=== PATIENT | female | born 1945 | race Caucasian/White ===

== ENCOUNTER 2019-09-15 13:22 | Inpatient (IN) ==
--- NOTE | 2019-09-15 13:52 | EKG Report ---
Test Performed on : 09/15/2019 1:40:41 PM Test Reason : weakness Blood Pressure : / mmHG Vent. Rate : 146 BPM Atrial Rate : 121 BPM P-R Int : 144 ms QRS Dur : 122 ms QT Int : 384 ms P-R-T Axes : 077 173 054 degrees QTc Int : 598 ms Undetermined rhythm Right bundle branch block Lateral infarct , age undetermined Inferior infarct (cited on or before 28-JUN-2018) Abnormal ECG When compared with ECG of 28-JUN-2018 17:43, Current undetermined rhythm precludes rhythm comparison, needs review QRS axis shifted right Lateral infarct is now present Unconfirmed Result
--- NOTE | 2019-09-15 13:58 | Diag Imaging Result Doc PS360 ---
CHEST-1 VIEW - 09/15/2019 INDICATION: ams COMPARISON: None FINDINGS: There is some scant linear atelectasis in the lateral left lung base. The lungs are clear. Heart size is normal. No pneumothorax or pleural effusion. IMPRESSION: Trace linear atelectasis in the lateral left lung base. Electronically signed by Wilton Krishna 09/15/2019 1:55 PM
[2019-09-15 14:21] LABS: BASO# 0.04 X1000 (0.0-0.2); BASO% 0.3 % (0.0-0.8); EOS# 0.01 X1000 (0.0-0.7); EOS% 0.1 % (0.0-10.0); HEMATOCRIT 47.6 % (37.0-47.0); HEMOGLOBIN 15.8 g/dL (12.0-16.0); IMM GRAN# 0.02 X1000 (0.0-0.04); IMM GRAN% 0.2 % (0.0-0.5); LYMPH# 0.78 X1000 (1.2-3.4); LYMPH% 6.1 % (20.5-51.1); MCHC 33.2 g/dL (33-37); MCV 90.3 FL (81-99); MONO# 0.24 X1000 (0.11-0.59); MONO% 1.9 % (1.7-9.3); MPV 10.9 FL (7.4-10.4); NEUT# 11.65 X1000 (1.4-6.5); NEUT% 91.4 % (42.2-75.2); PLT 362 X1000 (130-400); RBC 5.27 XMIL (4.2-5.4); RDW 13.8 % (11.5-14.5); WBC 12.74 X1000 (4.8-10.8)
[2019-09-15] MEDS ORDERED: NS 1,000 ML IV ONE ×2 (14:25→16:22)
--- NOTE | 2019-09-15 14:29 | PROVIDER DOCUMENTATION ---
HPI-General Adult - General Chief Complaint: Weakness Stated Complaint: VOMITING WEAKNESS LOSS APPETITE Time Seen by Provider: 09/15/19 14:09 Source: family Allergies/Adverse Reactions: Patient Allergies Allergy/AdvReac Type Severity Reaction Status Date / Time No Known Allergies Allergy Verified 06/28/18 14:19 Home Medications: Home Medication List Medication Instructions Recorded Confirmed Last Taken Type Citalopram [Celexa] 20 mg PO DAILY 06/28/18 09/07/19 06/27/18 History Memantine [Namenda] 10 mg PO BID 06/28/18 09/07/19 06/28/18 History Potassium Chloride 1 tab PO DAILY 09/07/19 09/07/19 Unknown History - History of Present Illness -Gen Adult Nature of Presenting Problems: 74 yr old F, presenting with her caregiver (her daughter) with concerns of increasing weakness, decreased appetite, and vomiting over the past few days. The daughter noticed that the patient had not been eating as much as she normally does, and also had an episode of vomiting last night and this morning. She also noted that the pt had been going to bed much earlier than she normally does over the past few days. The pt has recently been found to have tumors on the spine and lungs, and is due to start radiation this week. The daughter denies that the pt has had any fever; she thinks she may have been urinating less. Review of Systems - Adult - REVIEW OF SYSTEMS - ADULT ROS:: ROS per family Constitutional: reports: see HPI Eyes: reports: no symptoms reported Ears, Nose, Mouth & Throat: reports: no symptoms reported Cardiovascular: reports: no symptoms reported Respiratory: reports: no symptoms reported Gastrointestinal: reports: see HPI Genitourinary: reports: see HPI Musculoskeletal: reports: see HPI Integumentary: reports: no symptoms reported Neurological: reports: other (pt has some speech impediment; doesn't communicate clearly; this has been ongoing for a few months) Psychiatric: reports: no symptoms reported Past History - Adult - PAST MEDICAL HISTORY-ADULT Review of Records: reports: Old Records Reviewed, Nursing Assessment Review Major Childhood Illnesses: reports: denies history Cardiovascular: reports: denies history Respiratory: reports: denies history Gastrointestinal: reports: denies history Obstetrical/Gynecological: reports: denies history Genitourinary: reports: denies history Musculoskeletal: reports: denies history Neurological: reports: cancer/tumor (squamous w/ spinal tumor), CVA (mini- stroke), dementia (frontal lobe), TIA Psychiatric: reports: other (advanced alzheimers) Endocrine/Immune: reports: denies history Other Conditions: reports: denies history - PRIOR SURGERIES/PROCEDURES Surgical/Procedure History: reports: reviewed, not pertinent - IMMUNIZATION STATUS Childhood Immunizations: See Nurse Assessment Flu Vaccine: See Nurse Assessment - FAMILY HISTORY Family History: reviewed, not pertinent Physical Exam-General - PHYSICAL EXAM-ADULT Initial Vital Signs Reviewed: Yes - CONSTITUTIONAL General Appearance: alert, no apparent distress, thin - EYES Eyes: PERRL/EOMI - HEAD, EARS, NOSE, MOUTH & THROAT HENMT: normocephalic/atraumatic, moist mucous membranes - RESPIRATORY Respiratory: chest non-tender, lungs clear, normal breath sounds - CARDIOVASCULAR Cardiovascular: tachycardia - GASTROINTESTINAL (ABDOMEN) Abdominal Exam: normal bowel sounds, non tender, soft - MUSCULOSKELETAL Extremity: no pedal edema, other (pt does grab at her left leg, which apparently has been chronically hurting; the daughter states that typically means she is in pain .) - SKIN Integumentary: warm/dry - NEUROLOGIC Neurologic: negative: facial droop, focal weakness Progress - PLAN OF CARE/RESULTS Progress/Plan/Lab Results: Vital Signs - 8 hr 09/15/19 13:26 Temperature 99.0 F Pulse Rate 115 H Respiratory Rate 19 Blood Pressure 212/118 O2 Sat by Pulse Oximetry 98 Laboratory Results - last 24 hr 09/15/19 14:10 WBC 12.74 H RBC 5.27 Hgb 15.8 Hct 47.6 H MCV 90.3 MCH 30.0 MCHC 33.2 RDW Std Deviation 13.8 Plt Count 362 MPV 10.9 H Immature Gran % (Auto) 0.2 Neut % (Auto) 91.4 H Lymph % (Auto) 6.1 L [place] % (Auto) 1.9 Eos % (Auto) 0.1 Baso % (Auto) 0.3 Immature Gran # (Auto) 0.02 Neut # (Auto) 11.65 H Lymph # (Auto) 0.78 L [place] # (Auto) 0.24 Eos # (Auto) 0.01 Baso # (Auto) 0.04 Orders Category Date Time Status Cardiac Monitoring DIRECTED Care 09/15/19 13:34 Active Finger Stick Blood Sugar (ED) DIRECTED Care 09/15/19 13:34 Active Oxygen Therapy- ED Nursing DIRECTED Care 09/15/19 13:34 Active Saline Loc NOW Care 09/15/19 13:34 Active CHEST-1 VIEW [RAD] Stat Exams 09/15/19 13:35 Completed ALCOHOL BLOOD Stat Lab 09/15/19 14:10 Received CBC WITH ELECTRONIC DIFF [HEME] Stat Lab 09/15/19 14:10 Completed CK PROFILE [SP CHEM] Stat Lab 09/15/19 14:10 Received COMPREHENSIVE METABOLIC PANEL [CHEM] Stat Lab 09/15/19 14:10 Received LACTATE, PLASMA [CHEM] Stat Lab 09/15/19 14:10 Received PROTIME WITH INR [COAG] Stat Lab 09/15/19 14:10 Received PTT [COAG] Stat Lab 09/15/19 14:10 Received TROPONIN T HIGH SENSITIVITY Stat Lab 09/15/19 14:10 Received URINALYSIS [URINALYSIS] Stat Lab 09/15/19 13:34 Uncollected Ns 1000 ml IV Bolus X1 Med 09/15/19 14:25 Ordered 0.9% Sodium Chloride Inj [Ns] 1,000 ml IV 999 mls/hr Altered Mental Status Stat Oth 09/15/19 13:34 Ordered EKG [EKG] Stat Ther 09/15/19 13:34 Draft Pt with mild WBC elevation, mild signs of dehydration; most concerning is the fact that she had over a 1L of urine - possible retention, though CT Abd is negative for acute bladder pathology; this may be stemming from the spinal lesion; pt to be admitted after case discussed with hospitalist. Result Diagrams: 09/15/19 14:10 09/15/19 14:10 - EKG 1 Time of EKG reading by physician:: 13:40 EKG Read and Signed by:: Lai Porter EKG Interpretation (*Must complete 3 of following elements*): Abnormal Rate: 146 Rhythm: undetermined rhythm QRS: RBB [place] Interval: normal ST Wave: non-specific ST changes Comments: lateral, inferior infarct 2 Time of EKG reading by physician:: 17:14 EKG Read and Signed by:: Rhett Mina EKG Interpretation (*Must complete 3 of following elements*): Abnormal Rate: 111 Rhythm: sinus tachycardia with occasional PVCs and fusion complexes [place]: normal QRS: RBB [place] Interval: normal ST Wave: non-specific ST changes - XRAY 1 XRAY Study: Chest Impression: See EMR Report XRAY Interpretation: trace atelectasis - CT/MRI 1 CT Study: Abdomen, Pelvis Impression: See EMR Report CT Results: no acute findings; no bladder pathology; spinal lesion noted; - CONSULTS/PCP/HOSPITALIST Notification #1 *Consult/PCP/Hospitalist*: hCerie (for Dr. Anderson) Time Discussed: 17:45 Consult Disposition: Admit Departure - Departure Date of Disposition Decision: 09/15/19 Time of Disposition Decision: 19:00 DIAGNOSIS: Weakness, Hypertensive urgency Disposition: ADMITTED INPATIENT 09 Certified Medical Emergency: Emergent Condition: Fair - Critical Care Note This patient required my direct & personal management of CC.: No Attestation - Physician/ KANDY Attestation Patient care was provided by Advanced Practice Provider:: No The physician spent face to face time with patient:: Yes Advanced Practice Provider documentation review:: Supervising physician onsite and consulted in the evaluation and care of this patient. The physician did have a face to face encounter with the patient.
[2019-09-15 14:30] LABS: INR 0.98; PROTIME 13.1 Seconds (11.0-16.0); PTT 30.4 Seconds (22.3-41.8)
[2019-09-15 14:51] LABS: AGAP 15; ALB/GLOB RATIO 1.4; ALBUMIN 4.4 g/dL (3.5-5.0); ALKALINE PHOSPHATASE 91 U/L (32-104); BUN 11 mg/dL (8-22); CALCIUM 10.8 mg/dL (8.8-10.2); CHLORIDE 95 mmol/L (98-107); CK PROFILE 40 U/L (24-173); COSMO 268; CREATININE 0.7 mg/dL (0.5-0.9); ESTIMATED GFR > 60; GLUCOSE 175 mg/dL (70-104); GOT 14 U/L (10-30); GPT 8 U/L (10-36); POTASSIUM 4.3 mmol/L (3.5-5.1); SODIUM 132 mmol/L (136-145); TCO2 22 mmol/L (25-35); TOTAL BILIRUBIN 0.44 mg/dL (0.20-1.00); TOTAL PROTEIN 7.5 g/dL (6.3-8.3)
[2019-09-15] MEDS ORDERED: MORPHINE IV ONE (15:39)
[2019-09-15 15:43] LABS: URINE SOURCE CATH
[2019-09-15 15:51] LABS: BILIRUBIN URINE NEGATIVE (NEGATIVE); BLOOD URINE SMALL (NEGATIVE); COLOR YELLOW; GLUCOSE URINE NEGATIVE (NEGATIVE); KETONE URINE 20 mg/dL (NEGATIVE); LEUKOCYTES URINE SMALL (NEGATIVE); NITRITE URINE NEGATIVE (NEGATIVE); PH URINE 6.5; PROTEIN URINE TRACE mg/dL (NEGATIVE); SP GRAVITY URINE 1.013; TURBIDITY URINE HAZY (CLEAR); UROBILINOGEN URINE NORMAL (NORMAL)
[2019-09-15 15:52] LABS: UR EPITHELIAL CELLS <10 /HPF (<10); URINE BACTERIA 3+ /HPF; URINE RBC <10 /HPF (<10); URINE WBC 20-40 /HPF (<10)
[2019-09-15] MEDS ORDERED: ZOFRAN IV ONE (16:08)
[2019-09-15] MEDS ORDERED: TYLENOL PO PRN (17:31)
[2019-09-15] MEDS ORDERED: ZOFRAN IV PRN (17:31)
[2019-09-15] MEDS ORDERED: ROCEPHIN 1 GM in NS 50 ML IV SCH (17:45)
[2019-09-15] MEDS: NS 1,000 ML IV SCH (18:13)
--- NOTE | 2019-09-15 18:15 | HISTORY AND PHYSICAL ---
HISTORY OF PRESENT ILLNESS: Her primary care is in [place] and her oncologist is in [place]. We really do not have much in past medical records, her daughter brought her in. Her report is that the last 3 or 4 days she has not drank or ate much and seems to be more uncomfortable and she is much weaker, having to use the walker so she is concerned about her decline and concerned about poor p.o. intake and her general weakness. Apparently, in July, she was diagnosed with squamous cell lung cancer. They found a lesion in the right lower spine at L2. She is scheduled to start radiation treatment on in [place]. In the emergency room was noted she had bladder retention. She had a Zhao catheter placed. She had 1100 mL. Her chest x-ray was trace linear atelectasis in the lateral left lung base. Apparently, she has lesion tumor daughter said in the right upper lung with metastatic lesions to the lumbar spine. 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 She is not able to talk. She has to communicate other ways. She has chronic lower back pain. She has been diagnosed before with lumbar stenosis. She has no known drug allergies. She has battled depression and apparently some dementia as well and is on Namenda. FAMILY HISTORY: Daughter is not aware of any significant family history. SOCIAL HISTORY: Negative for alcohol or illicit drugs. I think she has a history of smoking. REVIEW OF SYSTEMS: General: The daughter is concerned she is losing weight, anorexia, not eating and not drinking much fluids and she is definitely getting weaker. HEENT: She is not aware of any change in visual or hearing acuity. She has progressive aphasia which she has had for a couple years. Respiratory: No increased work of breathing or dyspnea. Cardiovascular: No chest pain or tachy palpitation. GI/: Have not noticed any gross hematochezia or hematuria. PHYSICAL EXAMINATION: GENERAL: In the emergency room pleasant, well-developed, white female. She is not able to communicate, but she understands and can motion her head. VITAL SIGNS: Temp 99 degrees, pulse 115, respirations 19, blood pressure 212/118. HEENT: Pupils are equal and round. Neck was supple. No adenopathy. NECK: No distended neck veins. CVP less than 6 cm. LUNGS: Clear anterolateral and posterior. CARDIOVASCULAR: Regular rhythm and rate without murmur or S3. ABDOMEN: Soft. SKIN: Warm and dry. Height 5 feet 3 inches and her weight was 132 pounds. LABORATORY DATA: White count 55450, hematocrit 47, platelet count 362,000. Sodium 132, potassium 4.3, chloride 95, BUN 11, creatinine 0.7, calcium 10.8, AST 14, ALT was 8, alkaline phosphatase is 91, albumin is 4.4. ProTime is 13.1, PTT is 30.4. Urinalysis, 20 to 40 white blood cells, 3+ bacteria. Chest x-ray, trace linear atelectasis in the lateral left lung base. ASSESSMENT AND PLAN: 1. 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 We do not have those films, but apparently she is tentatively scheduled to have radiation therapy start on . Today is Sunday. The daughter is concerned about just her general decline, weakness, anorexia. We will try and give her some fluids, but I think our efforts will be to try and get her out of the hospital as quickly we can so she can get back with her primary care and her oncologist primarily and begin her treatments. 2. Primary progressive aphasia. Apparently, she has had this for a couple years, so she is not able to communicate verbally, but she can let you know what is going. 3. She has had a history of scoliosis and lumbar sacral stenosis, so she has a good deal of pain. 4. She had 3+ bacteria. She cannot really give us much symptomatology, so we are going to treat her for possible urinary tract infection. 5. Urinary retention had 1100 mL. I do not know if this is neurogenic bladder. We have a Zhao catheter for right now. I guess we could see if we can get the films sent from [facility] in regards to her spine and that may help us make a decision. For right now, we will keep the Zhao catheter in. We will give her normal saline. We will run it in at 85 mL an hour. We will treat her for urinary tract infection. We will use ceftriaxone 1 g now and 1 g q.24 hours. cc: Lux Anderson MD
--- NOTE | 2019-09-15 18:24 | Diag Imaging Result Doc PS360 ---
EXAM: CT ABDOMEN/PELVIS W/O CONTRAST INDICATION: abd pain, urinary retention TECHNIQUE: This exam was performed using automated exposure control, adjustment of mA or kV according to patient size, and/or use of iterative reconstruction technique. COMPARISON: None. FINDINGS: There is a large calcified stone in the lumen of the gallbladder. There is no pericholecystic inflammatory change identified. The liver, spleen, pancreas, and adrenal glands are unremarkable. There are a few small cyst density renal foci bilaterally. There are no renal or ureteral stones and there is no hydronephrosis. There is a Zhao catheter in the lumen of the urinary bladder. The urinary bladder is grossly unremarkable, otherwise. There is a 1.5 cm right ovarian lesion with a thick calcified rim. This probably represents a cyst with a calcified wall. Consider nonemergent ultrasound follow-up given the patient's age. The reproductive tract is grossly unremarkable as imaged, otherwise. There is extensive diverticulosis coli, predominantly involving the sigmoid colon. There is no evidence of diverticulitis. The appendix is normal. No focal bowel wall thickening or bowel obstruction is appreciated. The remainder of the GI tract is essentially unremarkable as imaged. There is aortoiliac atherosclerotic calcification and there is a small 3 cm infrarenal abdominal aortic aneurysm. No focal inflammatory changes, free abdominal gas, or free fluid is appreciated. There is a lytic lesion involving the L2 vertebral body and extending into the L2 pedicle. It is likely compromising the central canal. This is assumed to represent a metastatic lesion as there is a given history of stage IV lung cancer. IMPRESSION: 1.No renal or ureteral stones and no evidence of acute obstructive uropathy. 2.Advanced uncomplicated diverticulosis coli. 3.Rim calcified right ovarian lesion as detailed above. 4.Cholelithiasis. 5.Lytic lesion involving the L2 vertebra with likely encroachment of the central spinal canal. This is assumed to be a metastatic lesion as there is a history of stage IV lung cancer. Electronically signed by Guicho Mathur 09/15/2019 6:22 PM
[2019-09-15] MEDS: MORPHINE IV PRN (23:03)
[2019-09-16] MEDS: MORPHINE IV PRN ×3 (07:02→21:05)
[2019-09-16] MEDS: NS 1,000 ML IV SCH ×2 (07:07→19:10)
[2019-09-16 07:25] LABS: BASO# 0.04 X1000 (0.0-0.2); BASO% 0.3 % (0.0-0.8); EOS# 0.11 X1000 (0.0-0.7); EOS% 0.9 % (0.0-10.0); HEMATOCRIT 44.3 % (37.0-47.0); HEMOGLOBIN 14.7 g/dL (12.0-16.0); IMM GRAN# 0.04 X1000 (0.0-0.04); IMM GRAN% 0.3 % (0.0-0.5); LYMPH# 1.46 X1000 (1.2-3.4); LYMPH% 11.9 % (20.5-51.1); MCH 29.8 PG (27-31); MCHC 33.2 g/dL (33-37); MCV 89.9 FL (81-99); MONO# 0.61 X1000 (0.11-0.59); MPV 10.8 FL (7.4-10.4); NEUT# 10.02 X1000 (1.4-6.5); NEUT% 81.6 % (42.2-75.2); PLT 316 X1000 (130-400); RBC 4.93 XMIL (4.2-5.4); RDW 13.8 % (11.5-14.5); WBC 12.28 X1000 (4.8-10.8)
--- NOTE | 2019-09-16 07:54 | EKG Report ---
Test Performed on : 09/15/2019 5:14:44 PM Test Reason : TACHYCARDIC Blood Pressure : / mmHG Vent. Rate : 113 BPM Atrial Rate : 113 BPM P-R Int : 164 ms QRS Dur : 116 ms QT Int : 352 ms P-R-T Axes : 074 089 024 degrees QTc Int : 482 ms Sinus tachycardia. with premature atrial complexes. with aberrant conduction. Possible Left atrial enlargement Right bundle branch block Inferior infarct (cited on or before 28-JUN-2018) Abnormal ECG When compared with ECG of 15-SEP-2019 13:40, (Unconfirmed) Previous ECG has undetermined rhythm, needs review QRS axis shifted left Criteria for Lateral infarct are no longer present Non-specific change in ST segment in Anterior leads Unconfirmed Result
[2019-09-16 08:05] LABS: AGAP 14; BUN 6 mg/dL (8-22); CALCIUM 9.4 mg/dL (8.8-10.2); CHLORIDE 98 mmol/L (98-107); COSMO 271; CREATININE 0.6 mg/dL (0.5-0.9); ESTIMATED GFR > 60; GLUCOSE 125 mg/dL (70-104); POTASSIUM 3.5 mmol/L (3.5-5.1); SODIUM 136 mmol/L (136-145); TCO2 24 mmol/L (25-35)
--- NOTE | 2019-09-16 13:22 | Diag Imaging Result Doc PS360 ---
EXAM: ABDOMEN FLAT/UPRIGHT HISTORY: constipation TECHNIQUE: Two views COMPARISON: None. FINDINGS: There is stool throughout the colon. No bowel obstruction. No organomegaly. Mild scoliosis with degenerative spine changes. IMPRESSION: Mild constipation Electronically signed by Kye Shore 09/16/2019 1:20 PM
[2019-09-16] MEDS: MAXIPIME 1 GM in NS 50 ML IV SCH (13:48)
[2019-09-16] MEDS: MYCOSTATIN SUSP PO SCH ×3 (14:39→21:05)
--- NOTE | 2019-09-16 15:37 | Diag Imaging Result Doc PS360 ---
CT MAXILLOFACIAL(SINUS) W/O CO - 09/16/2019 INDICATION: sinusitis TECHNIQUE: COMPARISON: CT from 09/07/2019 FINDINGS: The facial bones are intact and normally mineralized. There is a small subcentimeter mucosal retention cyst in the floor of the right maxillary sinus. Otherwise the sinuses are clear. Soft tissues are clear. IMPRESSION: Negative exam. Electronically signed by Wilton Krishna 09/16/2019 3:34 PM
--- NOTE | 2019-09-16 17:09 | PROGRESS NOTE ---
DATE: 09/16/2019 SUBJECTIVE: The patient is resting comfortably. She is nonverbal. Her daughter is present at the bedside. She states that the patient is more awake today, however, she is not eating. OBJECTIVE: Vital Signs: Temperature 97.8 degrees blood pressure 171/89, heart rate 108, respirations 20, O2 saturation 94% on room air. General: This is a chronically ill-appearing elderly female lying in bed in no acute distress. Heart: S1, S2. Normal. Lungs: Equal air entry bilaterally. Abdomen: Positive bowel sounds. Soft, nontender, nondistended. Extremities: No edema. No cyanosis. Neurologic: The patient is awake, but nonverbal. LABORATORY DATA: White blood cell count 12, hemoglobin 14, hematocrit 44, platelets 316,000. Sodium 136, potassium 3.5, chloride 98, CO2 24, BUN 6, creatinine 0.6, glucose 125. ASSESSMENT AND PLAN: 1. Metabolic encephalopathy. Most likely secondary to the patient's underlying urinary tract infection. 2. Dysphagia. Will order a modified barium swallow. 3. Urinary tract infection. Will await the results of the urine culture. Continue with antibiotic therapy. 4. Advanced dementia. Aware. 5. Constipation. We will start the patient on scheduled laxative therapy. 6. Deep vein thrombosis prophylaxis. Continue on heparin. cc: Miley Delgado MD MTDD
[2019-09-16] MEDS: HEPARIN SUBQ SCH (21:05)
[2019-09-16] MEDS: MIRALAX PO SCH (21:05)
[2019-09-16] MEDS: DULCOLAX PR SCH (21:06)
[2019-09-17] MEDS: MAXIPIME 1 GM in NS 50 ML IV SCH ×2 (01:06→12:40)
[2019-09-17] MEDS: MORPHINE IV PRN ×3 (02:04→20:59)
[2019-09-17] MEDS: NS 1,000 ML IV SCH (07:37)
[2019-09-17 07:38] LABS: BASO# 0.03 X1000 (0.0-0.2); BASO% 0.3 % (0.0-0.8); EOS# 0.22 X1000 (0.0-0.7); EOS% 2.4 % (0.0-10.0); HEMOGLOBIN 13.2 g/dL (12.0-16.0); IMM GRAN# 0.03 X1000 (0.0-0.04); IMM GRAN% 0.3 % (0.0-0.5); LYMPH# 1.96 X1000 (1.2-3.4); LYMPH% 21.4 % (20.5-51.1); MCV 90.9 FL (81-99); MONO# 0.51 X1000 (0.11-0.59); MONO% 5.6 % (1.7-9.3); NEUT# 6.41 X1000 (1.4-6.5); PLT 283 X1000 (130-400); RDW 13.6 % (11.5-14.5); WBC 9.16 X1000 (4.8-10.8)
[2019-09-17 08:14] LABS: AGAP 11; BUN 7 mg/dL (8-22); CHLORIDE 103 mmol/L (98-107); COSMO 273; CREATININE 0.6 mg/dL (0.5-0.9); ESTIMATED GFR > 60; GLUCOSE 89 mg/dL (70-104); POTASSIUM 3.3 mmol/L (3.5-5.1); SODIUM 138 mmol/L (136-145); TCO2 24 mmol/L (25-35)
[2019-09-17] MEDS: MIRALAX PO SCH ×2 (08:22→21:06)
[2019-09-17] MEDS: HEPARIN SUBQ SCH ×2 (08:22→21:06)
[2019-09-17] MEDS: MYCOSTATIN SUSP PO SCH ×4 (08:22→21:06)
--- NOTE | 2019-09-17 11:41 | Diag Imaging Result Doc PS360 ---
BA SWALLOW W/VIDEO SPEECH THER - 09/17/2019 INDICATION: dysphagia TECHNIQUE: Total fluoroscopy time was 87 seconds. 323 images were obtained. COMPARISON: None FINDINGS: The patient was extremely altered and could not cooperate with the exam, resulting in a poor exam overall. Although there was no aspiration visible during the exam, there are several swallows there was significant passage of contrast past the larynx with the epiglottis white open. This indicates severe risk for aspiration in the future. The esophagus was evaluated. There was moderate presbyesophagus but overall no obstruction of the distal esophagus. IMPRESSION: Very poor responsiveness of the epiglottis, patient is at high risk for aspiration. Electronically signed by Wilton Krishna 09/17/2019 11:39 AM
[2019-09-17] MEDS: DULCOLAX PR SCH ×2 (11:44→21:07)
[2019-09-17] MEDS ORDERED: FLONASE NAS ONE (15:18)
[2019-09-17] MEDS ORDERED: POTASSIUM CHLORIDE 20% LIQUID PO ONE (20:11)
--- NOTE | 2019-09-17 21:04 | PROGRESS NOTE ---
DATE: 09/17/2019 SUBJECTIVE: The patient is resting comfortably. The patient is more awake and alert today according to her daughter. OBJECTIVE: Vital Signs: Temperature 98.2 degrees, blood pressure 153/69, heart rate 84, respirations 16, O2 saturation 96% on room air. General: This is a chronically ill-appearing elderly female lying in bed in no acute distress. Heart: S1, S2 normal. Regular rate and rhythm. Lungs: Clear to auscultation bilaterally. Abdomen: Positive bowel sounds. Soft, nontender, nondistended. Extremities: No edema, no cyanosis. Neurologic: The patient is awake and alert but demented. LABORATORY DATA: Sodium 138, potassium 3.3, chloride 103, CO2 24, BUN 7, creatinine 0.6, glucose 89. ASSESSMENT AND PLAN: 1. Metabolic encephalopathy superimposed on dementia. It looks like the patient has returned to baseline. 2. Urinary tract infection. Continue with the current antibiotic regimen. 3. Advanced dementia. Aware. 4. Dysphagia. The patient had a modified barium swallow today that revealed that the patient is at high risk for aspiration. We will continue with aspiration precautions. 5. Constipation. Continue on laxative therapy. 6. Dehydration. Improved. 7. Deep vein thrombosis prophylaxis. Continue on heparin. 8. Hypokalemia. We will replace the patient's potassium. 9. Disposition. If the patient continues to improve, she can likely be discharged home with home health services tomorrow. cc: Miley Delgado MD MTDD
--- NOTE | 2019-09-17 21:52 | HEMO/ONC CONSULTATION ---
DATE: 09/17/2019 REQUESTING: Hospitalist service. REASON FOR CONSULTATION: Patient known. HISTORY OF PRESENT ILLNESS: Ms. Sanchez is a 74-year-old female who is known to our practice as she sees Dr. Hugh Lua over at the [place] office. She was actually recently seen on 09/09/[address] Lua. The patient presented to [facility] a couple of days ago with increased weakness and decreased p.o. intake. 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 She was actually down to start Xgeva on 09/16/2019, but was obviously admitted the day before, so she has not received that. There are also plans to get her going with radiation therapy. They have also sent off PL1 testing which is pending at this time. The patient has now been admitted and has been found to have a urinary tract infection as well as some urinary retention. We have been consulted as she is known to our practice and to assist in her management while here in the hospital. PAST MEDICAL HISTORY: 1. Dementia. 2. COPD. 3. Chronic back pain. 4. Aphasia. SOCIAL HISTORY: The patient denies any alcohol or illicit drug use. She was an everyday smoker up until recently. She has a supportive family. FAMILY HISTORY: Positive for prostate cancer in her father and one of her children has breast cancer. REVIEW OF SYSTEMS: Twelve point review of systems has been completed and is negative except for what is expressed in the HPI. PHYSICAL EXAMINATION: Vital Signs: Temperature 98.6 degrees, heart rate 75, respirations 16, blood pressure 157/83, O2 saturation 98% on room air. General: This is a frail-appearing, chronically ill-appearing female who is lying in hospital bed. She has family members at bedside. Head: Normocephalic, atraumatic. Eyes: Pupils equal, round, and reactive. She does have bruising noted around both of her eyes. ENT: Oral mucosa appears to be normal and gross auditory acuity appears to be intact as the patient is able to communicate somewhat, even though she cannot really talk. CV: S1, S2 heard. No murmurs, gallops, rubs appreciated. Respiratory: Chest is clear. Gastrointestinal: Soft. Positive bowel sounds. Musculoskeletal: Again, she is just frail-appearing. Neurologic: The patient has aphasia that she has had for a couple of years now. This is overall stable at this point. LABS AND STUDIES: White blood cells 9.16, down from 12.74 on admission, hemoglobin 13.2, platelet count 283,000. Sodium 138, potassium 3.3, chloride 103, CO2 24, BUN 7, creatinine 0.6, glucose 89. She does have leukocytes in her urine. CT's have been negative for any acute findings. ASSESSMENT AND PLAN: 1. Metastatic nonsmall cell lung cancer with L2 lytic lesion/destructive lesion. There are plans for the patient to begin radiation therapy. We are going to go ahead and contact Dr. Renner and let her know that the patient is currently in the hospital. Hopefully, we will be able to get palliative radiation therapy going as soon as possible. PL1 testing is currently pending and the patient has not received any systemic treatment as of yet. We will update Dr. Hugh Lua and his team over at the [place] office. We will continue to follow along with the patient while she is here in the hospital. 2. Metabolic encephalopathy. She did have underlying urinary tract infection. She is currently being treated. Management per the primary team. 3. Now with dysphagia. They have done a modified barium swallow. Follow up on those results. 4. Urinary tract infection. She continues on empiric antibiotics. Follow up on urine culture when it becomes available. 5. Advanced dementia. Overall stable. We want to thank you for consulting us on Ms. Sanchez. We will continue to follow and adjust our treatment plan per her hospital course. Dictated by ANTONIA Lombardi for Susy Leon MD cc: Susy Leon MD Pt seen and examined and above note reflects my history, physical exam, assessment and plan. Susy Leon MD [facility]
[2019-09-18] MEDS: MAXIPIME 1 GM in NS 50 ML IV SCH ×2 (00:32→13:41)
[2019-09-18] MEDS: MORPHINE IV PRN ×4 (01:45→13:58)
[2019-09-18] MEDS: NS 1,000 ML IV SCH ×2 (04:45→04:46)
[2019-09-18 07:56] LABS: BASO# 0.02 X1000 (0.0-0.2); BASO% 0.2 % (0.0-0.8); EOS# 0.05 X1000 (0.0-0.7); EOS% 0.5 % (0.0-10.0); HEMATOCRIT 44.3 % (37.0-47.0); HEMOGLOBIN 14.8 g/dL (12.0-16.0); IMM GRAN# 0.03 X1000 (0.0-0.04); IMM GRAN% 0.3 % (0.0-0.5); LYMPH# 1.33 X1000 (1.2-3.4); LYMPH% 14.2 % (20.5-51.1); MCH 29.8 PG (27-31); MCHC 33.4 g/dL (33-37); MCV 89.3 FL (81-99); MONO# 0.53 X1000 (0.11-0.59); MONO% 5.7 % (1.7-9.3); MPV 11.3 FL (7.4-10.4); NEUT# 7.41 X1000 (1.4-6.5); NEUT% 79.1 % (42.2-75.2); PLT 323 X1000 (130-400); RBC 4.96 XMIL (4.2-5.4); RDW 13.5 % (11.5-14.5); WBC 9.37 X1000 (4.8-10.8)
[2019-09-18 08:34] LABS: AGAP 13; BUN 5 mg/dL (8-22); CALCIUM 9.5 mg/dL (8.8-10.2); CHLORIDE 101 mmol/L (98-107); COSMO 275; CREATININE 0.6 mg/dL (0.5-0.9); ESTIMATED GFR > 60; GLUCOSE 127 mg/dL (70-104); POTASSIUM 2.8 mmol/L (3.5-5.1); SODIUM 138 mmol/L (136-145); TCO2 24 mmol/L (25-35)
[2019-09-18] MEDS: DULCOLAX PR SCH (08:34)
[2019-09-18] MEDS: HEPARIN SUBQ SCH (08:34)
[2019-09-18] MEDS: MIRALAX PO SCH (08:35)
[2019-09-18] MEDS: MYCOSTATIN SUSP PO SCH ×2 (08:35→13:41)
[2019-09-18] MEDS ORDERED: POTASSIUM CHLORIDE 60 MEQ in NS 500 ML IV ONE (08:37)
[2019-09-18] MEDS ORDERED: FLONASE NAS SCH (09:00)
[2019-09-18] MEDS ORDERED: NORVASC PO SCH (09:00)
[2019-09-18] MEDS ORDERED: PRILOSEC PO SCH (09:15)
--- NOTE | 2019-09-18 09:57 | Diag Imaging Result Doc PS360 ---
EXAM: CHEST-PORTABLE HISTORY: dyspnea TECHNIQUE: Single view COMPARISON: 09/15/2019 FINDINGS: The lungs are well expanded. The heart is not enlarged. The vessels are not distended. There are no infiltrates. No effusion identified. IMPRESSION: Negative exam. Electronically signed by Kye Shore 09/18/2019 9:55 AM
[2019-09-18 12:22] VITALS: BP 135/91
[2019-09-18] MEDS ORDERED: INDERAL PO SCH (21:00)
--- NOTE | 2019-09-19 11:57 | DISCHARGE SUMMARY ---
ADMISSION DATE: 09/15/2019 DISCHARGE DATE: 09/18/2019 FINAL DISCHARGE DIAGNOSES: 1. Metabolic encephalopathy. 2. Urinary tract infection. 3. Advanced dementia. 4. Squamous cell lung cancer. 5. Hypertension. 6. Benign essential tremor. 7. Dysphagia. CONSULTATIONS: Oncology consultation with Dr. Leon. HOSPITAL COURSE: Ms. Sanchez is a 74-year-old female with a history of squamous cell lung cancer under the care of Dr. Lua who was brought to the ER, with a chief complaint of weakness and loss of appetite as well as increasing lethargy. On admission, a urinalysis was done that was positive for infection. The patient was admitted to the hospitalist service for further treatment and evaluation. The patient is scheduled to start radiation therapy this coming week. The patient was also noted to be dehydrated, and was started on IV fluids in addition to antibiotics. Ultimately, the urine culture showed no growth, and the blood cultures so far remain negative. The patient improved clinically after receiving fluids and antibiotics. It was noted that the patient has been having increasing difficulty with swallowing so modified barium swallow was done that indicated that the patient is at high risk for aspiration. These findings were discussed with the patient's daughter who opted not to have GI involved during this hospital stay. The patient continued to improve clinically and was ultimately cleared for discharge home on 09/18/2019. DISCHARGE MEDICATIONS: 1. Keflex 500 mg oral twice a day x5 days. 2. MiraLAX 17 g oral daily. 3. Prilosec 40 mg p.o. daily. 4. Inderal 20 mg oral twice a day. 5. Celexa 20 mg p.o. daily. 6. Namenda 10 mg p.o. twice a day. 7. Potassium chloride 1 tab oral daily. 8. [place] 7.5/325 one tab oral every 6 hours p.r.n. for pain. DISCHARGE DIET: Low-sodium diet. ACTIVITY: As tolerated. FOLLOWUP INSTRUCTIONS: The patient will need to follow up with Dr. Renner as scheduled to start her radiation treatments. The patient will need to follow up with Dr. Pollard in the next 2 to 3 weeks as a new patient to discuss treatment for dysphagia. cc: Miley Delgado MD
== END 2019-09-18 16:22 | disposition home health service (06) | DRG 689 ==
LOC: ED 13:22 → SUATTDRO 18:05 → EDIPHOLD 18:05 → 3N 20:45
PROVIDERS: ATTEND Internal Medicine